=== PATIENT | male | born 1960 | race Hispanic/Latino ===

== ENCOUNTER 2017-01-19 06:35 | Day surgery (SDC) | payer BC ==
[~2017-01-19] VITALS: Ht 180.3 cm; Wt 81.2 kg
[~2017-01-19 06:35] MED LIST: GLUCOPHAGE1000 MG PO; LIPITOR20 MG PO; OMEPRAZOLE20 MG PO; ZESTRIL5 MG PO
[2017-01-19] MEDS ORDERED: DOXYCYCLINE HY100 MG PO (06:51)
--- NOTE | 2017-01-19 09:00 | NUR ---
01/19/17 0900 Prabhakar Roland PATIENT BS 310 ON ARRIVAL TO PACU - DR WEAVER AWARE, PATIENT TO TAKE EXTENDED RELEASE METFORMIN ON DISCHARGE PER DR WEAVER. NO NEW ORDERS
--- NOTE | 2017-01-19 10:10 | NUR ---
BOTH PT AND WINIFRED A LITTLE TENSE. FIRST TIME IN HOSP FOR PT FOR ANY TYPE OF PROCEDURE. DEBRIEFED BOTH, HAD GOOD CONVERSATION. HELPED THEM TO UNDERSTAND WHAT TO EXPECT TODAY. THEY BOTH SEEMED MORE RELIEVED. PT REQUESTED PRAYER. WILL FOLLOW NEEDED
--- NOTE | 2017-01-20 13:21 | OR ---
[facility] [address], [place] [address] Signed DATE OF PROCEDURE: 01/19/17 PREOPERATIVE DIAGNOSES Anemia. Maternal grandmother with colon cancer in her late 70s. Gastroesophageal reflux disease. POSTOPERATIVE DIAGNOSES Mild proximal and distal patchy gastritis. Minimal sigmoid diverticulosis. Jwujqtlh-zr-srmvrzumxoo internal hemorrhoids. A 4-mm polyp at 25 cm. PROCEDURE PERFORMED EGD with CLOtest and biopsies of the bulb and antrum. Colonoscopy with hot biopsy. ESTIMATED BLOOD LOSS: None. INDICATIONS Kenny is a 56-year-old gentleman asked to see me for upper and lower endoscopy. He has been found to be anemic. He told me he has no upper or lower GI complaints. He mentioned that his maternal grandmother had colon cancer in late 70s. He told me he seems to have acid reflux and uses omeprazole . In the office, I gave Benjamín a pamphlet on both upper and lower endoscopy. We reviewed that together along with the risks including, but not limited to gas bloating, crampy abdominal pain, bleeding, perforation requiring surgery, and missed diagnosis. Ramonita mercedes also discussed the need for IV conscious sedation. He had his expressed understanding and wished to proceed. PROCEDURE IN DETAIL Benjamín was taken into our endoscopy suite and placed in the supine semi-recumbent position. He was given a total of 13 mg of Versed and 200 mcg of Fentanyl to cover both procedures. The posterior oropharynx was anesthetized with Hurricaine spray. A bite block was utilized for the case. The adult gastroscope was introduced and advanced under direct visualization of the camera out into the third portion of the duodenum. The duodenum and pyloric channel were unremarkable. He had just a few patchy areas in the antrum and up around the fundus of the stomach. We took a biopsy of the antrum for pathologic review as well as CLOtest. Upon retroflexion of scope, he does not have a true hiatal hernia, but the flap valve mechanism is less than optimal. There is no gastric or esophageal varices. No ulcerations. The scope was withdrawn up to the GE junction, which was compliant without stricture. He has very minimal disruption to his Z-line. There was no Coto's mucosa, no distal esophagitis. The middle and upper Electronically Signed By: DOE WEAVER MD 01/20/17 1321 PATIENT NAME: BENJAMÍN DOTY JR OPERATIVE REPORT DATE OF : 64 PHYSICIAN: DOE WEAVER MD REPORT #: [id number] REPORT IS CONFIDENTIAL AND NOT TO BE RELEASED WITHOUT AUTHORIZATION [facility] [address] [place], [place] [address] Signed esophagus were unremarkable. After this, the gastroscope was removed. Benjamín tolerated the procedure quite well. Benjamín was then rotated into the left lateral decubitus position. He was maintained on IV sedation with Versed and Fentanyl. A digital rectal exam was performed and he is starting to get some induration of his prostate consistent with his age. The adult colonoscope was introduced and advanced under direct visualization of the camera. The scope continued to buckle in his left colon for reasons that were not clear. We rotated him onto his back and back on the left lateral decubitus position. We used the abdominal compression, and eventually, the scope made its way around into the cecum itself. His prep was moderate. After that, the scope was slowly withdrawn. We could easily see the appendiceal orifice, catawba's foot, the ileocecal valve. We found a polyp at about 20-25 cm, which we removed with a hot biopsy forceps, was just above the rectum. We also saw just an occasional diverticula in the sigmoid colon. They were moderate-sized, few in number, and scattered about. The rectum itself was unremarkable. Upon retroflexion of the scope, he has moderate to significant internal hemorrhoids. No obvious bleeding at this time. No irritation that we could see. The gas was then suctioned out. The colonoscope removed. Ed tolerated the procedure quite well. RECOMMENDATIONS I will see him back in my office in 7-14 days to review his results. On his next colonoscopy, he might consider some additional prep to help ensure better clean-out of his colon. MD PHILLIP Vanessa/Adrienne /[id number] cc: Brodie Capone MD Electronically Signed By: DOE WEAVER MD 01/20/17 1321 PATIENT NAME: BENJAMÍN DOTY JR OPERATIVE REPORT DATE OF : 64 PHYSICIAN: DOE WEAVER MD REPORT #: [id number] REPORT IS CONFIDENTIAL AND NOT TO BE RELEASED WITHOUT AUTHORIZATION
[2017-01-26] MEDS ORDERED: INSULIN SYRING1 EA11 SUB-Q (11:16)
[2017-01-26] MEDS ORDERED: NOVOLIN R100 UNIT/1 SUB-Q (11:16)
== END 2017-01-19 09:27 | disposition home or self-care (01) ==
LOC: DS 06:35
PROVIDERS: Colon & Rectal Surgery
PROC: 0DB78ZX Excision of Stomach, Pylorus, Via Natural or Artificial Opening Endoscopic, Diagnostic (ICD-10-PCS; 2017-01-19)
PROC: 0DBE8ZX Excision of Large Intestine, Via Natural or Artificial Opening Endoscopic, Diagnostic (ICD-10-PCS; principal; 2017-01-19 06:45)
PROC: 0DB68ZX Excision of Stomach, Via Natural or Artificial Opening Endoscopic, Diagnostic (ICD-10-PCS; 2017-01-19 06:45)
DX: D12.6 Benign neoplasm of colon, unspecified (principal); K29.50 Unspecified chronic gastritis without bleeding; K57.30 Diverticulosis of large intestine without perforation or abscess without bleeding; K64.8 Other hemorrhoids; K21.9 Gastro-esophageal reflux disease without esophagitis; K44.9 Diaphragmatic hernia without obstruction or gangrene; I10 Essential (primary) hypertension; E11.9 Type 2 diabetes mellitus without complications; D64.9 Anemia, unspecified; Z79.899 Other long term (current) drug therapy; Z80.0 Family history of malignant neoplasm of digestive organs
CPT/HCPCS: 86677; 99152; 99153; J2250; J3010; J7120

== ENCOUNTER 2017-01-22 09:02 | Inpatient (IN) | payer BC ==
[~2017-01-22] VITALS: Ht 180.3 cm; Wt 79.7 kg
--- OUTSIDE RECORDS SUMMARY | ~2017-01-22 | XMS ---
Demographics + + + | Address | [address] | | | [place] [address] | + + + | Preferred Language | Unknown | + + + | Marital Status | Unknown | + + + | Gnosticist Affiliation | Unknown | + + + | Race | Unknown | + + + | Ethnic Group | Unknown | + + + Author + + + | Author | [facility] | + + + | Organization | [facility] | + + + | Address | [address] | | | [place] [address] | + + + | Phone | | + + + Care Team Providers + + + + | Care Junior Systems Administrator Name | Role | Phone | + + + + Unavailable | Unavailable | + + + + PROBLEMS +---------+ + + +--------+ + + | Type | Condition | ICD9-CM | [id number] | Onset | Condition | SNOMED | | | | Code | Code | Dates | Status | Code | +---------+ + + +--------+ + + | Problem | Single | I10 | | | Active | [id number] | | | episode of | | | | | | | | | | | | | | | | hypertensi | | | | | | | | on | | | | | | +---------+ + + +--------+ + + | Problem | Dyslipidem | E78.5 | | | Active | 477098152 | | | ia | | | | | | +---------+ + + +--------+ + + | Problem | Diabetes | | E11.9 | | Active | 664690750 | +---------+ + + +--------+ + + | Problem | Marijuana | F12.10 | | | Active | 58892203 | | | use | | | | | | +---------+ + + +--------+ + + | Problem | Type 2 | | E11.9 | | Active | 652011867 | | | diabetes | | | | | | | | mellitus | | | | | | | | without | | | | | | | | complicati | | | | | | | | ons | | | | | | +---------+ + + +--------+ + + | Problem | HTN | | I10 | | Active | 62283974 | | | (hypertens | | | | | | | | ion) | | | | | | +---------+ + + +--------+ + + | Problem | Type 2 | | E11.621 | | Active | [id number] | | | diabetes | | | | | 100 | | | mellitus | | | | | | | | with foot | | | | | | | | ulcer | | | | | | +---------+ + + +--------+ + + | Problem | Screening | | Z12.11 | | Active | 818064200 | | | for colon | | | | | | | | cancer | | | | | | +---------+ + + +--------+ + + | Problem | Screening | Z12.5 | | | Active | 366760274 | | | for | | | [...] N.K.D.A. | Unknown | Non Drug | Nov, | Unknown | | | | Allergy | | | + + + + +---------+ SOCIAL HISTORY No smoking Hx information available PLAN OF CARE + +---------+ | Activity | Details | + +---------+ +---+ | | +---+ + + + | Follow Up | 4 Weeks Reason:null | + + + | Pending Test | Helicobacter pylori Antigen, Stool | + + + VITAL SIGNS + + + + | Height | 71 in | 2016-11-12 | + + + + | Weight | 181.2 lbs | 2016-11-12 | + + + + | BMI | 25.27 kg/m2 | 2016-11-12 | + + + + | Temperature | 98.0 degrees Fahrenheit | 2016-11-12 | + + + + | Heart Rate | 106 /min | 2016-11-12 | + + + + | Blood pressure systolic | 128 mm Hg | 2016-11-12 | + + + + | Blood pressure diastolic | 83 mm Hg | 2016-11-12 | + + + + MEDICATIONS + [...] + + + + + +--------+ | Bactrim | Orally | 1 tablet | 12h | 25 October, | 4 Nov, | 10 | Active | | DS | bid | | | 2017 | 2017 | day(s) | | | 800-160 | | | | | | | | | MG | | | | | | | | + + + + + + + +--------+ RESULTS + +--------+ + + | Name | Result | Date | Reference Range | + +--------+ + + | PSA Total+ Free | | 2016-11-12 | | + +--------+ + + | Prostate-Specific | | | | | Ag, Serum | | | | + +--------+ + + | % Free PSA | | | | + +--------+ + + | PSA, Free | | | | + +--------+ + + | Iron Deficiency | | 2016-11-12 | | | Panel | | | | + +--------+ + + | IRON | | | | + +--------+ + + | TIBC | | | | + +--------+ + + | % SATURATION | | | | + +--------+ + + | FERRITIN | | | | + +--------+ + + | UIBC | | | | + +--------+ + + | TRANSFERRIN | | | | + +--------+ + + | Vitamin B12 and | | 2016-11-12 | | | Folate | | | | + +--------+ + + | VITAMIN B12 | | | | + +--------+ + + | FOLATE | | | | + +--------+ + + | Reticulocyte Count | | 2016-11-12 | | + +--------+ + + PROCEDURES + + + + + | Procedure | Date Ordered | Related Diagnosis | Body Site | + + + + + | TOBACCO NON-USER | November 12, 2016 | | | + + + + + | TDAP >7, IM | November 12, 2016 | | | + + + + + | IMMUNIZATION ADMIN | November 12, 2016 | | | + + + + + | COLORECTAL CA | November 12, 2016 | | | | SCREEN DOC REV | | | | + + + + + | DSCHRG MED/CURRENT | November 12, 2016 | | | | MED MERGE | | | | + + + + + | PATIENT RECV TRELL | November 12, 2016 | | | | INHIBITOR/ARB TX | | | | + + + + + | INJECTION | November 12, 2016 | | | | INTRAMUSCULAR OR | | | | | SUBCUTANEOUS | | | | + + + + + | PNEUMOCOCCAL VACC, | November 12, 2016 | | | | 13 TATO IM | | | | + + + + + | HEMOGLOBIN A1C | November 12, 2016 | | | | LEVEL > 9.0% | | | | + + + + + | EST Pt. Level V | November 12, 2016 | | | | Comprehensive | | | | + + + + + IMMUNIZATIONS + + + + + | Vaccine | Route | Administration Date | Status | + + + + + | Prevnar 13 | IM Intramuscular | November 12, 2016 | Administered | + + + + + | TDAP >7, IM | IM Intramuscular | November 12, 2016 | Administered | + + + + +"
--- OUTSIDE RECORDS SUMMARY | ~2017-01-22 | XMS ---
Demographics + + + | Address | [address] | | | [place] [address] | + + + | Preferred Language | Unknown | + + + | Marital Status | Unknown | + + + | Protestant Affiliation | Unknown | + + + | Race | Unknown | + + + | Ethnic Group | Unknown | + + + Author + + + | Author | [facility] | + + + | Organization | [facility] | + + + | Address | [address] | | | [place] [address] | + + + | Phone | | + + + Care Team Providers + + + + | Care Yarn Wrapper Name | Role | Phone | + + + + Unavailable | Unavailable | + + + + PROBLEMS +---------+ + + +--------+ + + | Type | Condition | ICD9-CM | [id number] | Onset | Condition | SNOMED | | | | Code | Code | Dates | Status | Code | +---------+ + + +--------+ + + | Problem | Single | I10 | | | Active | [id number] | | | episode of | | | | | | | | | | | | | | | | hypertensi | | | | | | | | on | | | | | | +---------+ + + +--------+ + + | Problem | Dyslipidem | E78.5 | | | Active | 400251455 | | | ia | | | | | | +---------+ + + +--------+ + + | Problem | Diabetes | | E11.9 | | Active | 693988484 | +---------+ + + +--------+ + + | Problem | Marijuana | F12.10 | | | Active | 55021412 | | | use | | | | | | +---------+ + + +--------+ + + | Problem | Type 2 | | E11.9 | | Active | 270742367 | | | diabetes | | | | | | | | mellitus | | | | | | | | without | | | | | | | | complicati | | | | | | | | ons | | | | | | +---------+ + + +--------+ + + | Problem | HTN | | I10 | | Active | 41302503 | | | (hypertens | | | | | | | | ion) | | | | | | +---------+ + + +--------+ + + | Problem | Type 2 | | E11.621 | | Active | 7891160141 | | | diabetes | | | | | 100 | | | mellitus | | | | | | | | with foot | | | | | | | | ulcer | | | | | | +---------+ + + +--------+ + + | Problem | Screening | | Z12.11 | | Active | 108780379 | | | for colon | | | | | | | | cancer | | | | | | +---------+ + + +--------+ + + | Problem | Screening | Z12.5 | | | Active | 682850843 | | | for | | | | | | | | prostate | | | | | | | | cancer | | | | | | +---------+ + + +--------+ + + ALLERGIES Unknown Allergies SOCIAL HISTORY No smoking Hx information available PLAN OF CARE VITAL SIGNS MEDICATIONS + [...] | test | | directed | | 2017 | | | | | strips | | | | | | | | + + + + + + + +--------+ RESULTS No Results PROCEDURES No Known procedures IMMUNIZATIONS No Known Immunizations"
--- OUTSIDE RECORDS SUMMARY | ~2017-01-22 | XMS ---
Demographics + + + | Address | [address] | | | [place] [address] | + + + | Preferred Language | Unknown | + + + | Marital Status | Unknown | + + + | Confucianism Affiliation | Unknown | + + + | Race | Unknown | + + + | Ethnic Group | Unknown | + + + Author + + + | Author | [facility] | + + + | Organization | [facility] | + + + | Address | [address] | | | [place] [address] | + + + | Phone | | + + + Care Team Providers + + + + | Care Technical Developer Name | Role | Phone | + + + + Unavailable | Unavailable | + + + + PROBLEMS +---------+ + + +--------+ + + | Type | Condition | ICD9-CM | [id number] | Onset | Condition | SNOMED | | | | Code | Code | Dates | Status | Code | +---------+ + + +--------+ + + | Problem | Single | I10 | | | Active | 69562535 | | | episode of | | | | | | | | | | | | | | | | hypertensi | | | | | | | | on | | | | | | +---------+ + + +--------+ + + | Problem | Dyslipidem | E78.5 | | | Active | 614511161 | | | ia | | | | | | +---------+ + + +--------+ + + | Problem | Diabetes | | E11.9 | | Active | 226971839 | +---------+ + + +--------+ + + | Problem | Marijuana | F12.10 | | | Active | 78973302 | | | use | | | | | | +---------+ + + +--------+ + + | Problem | Type 2 | | E11.9 | | Active | 423393527 | | | diabetes | | | | | | | | mellitus | | | | | | | | without | | | | | | | | complicati | | | | | | | | ons | | | | | | +---------+ + + +--------+ + + | Problem | HTN | | I10 | | Active | 54033134 | | | (hypertens | | | | | | | | ion) | | | | | | +---------+ + + +--------+ + + | Problem | Type 2 | | E11.621 | | Active | 3252312528 | | | diabetes | | | | | 100 | | | mellitus | | | | | | | | with foot | | | | | | | | ulcer | | | | | | +---------+ + + +--------+ + + | Problem | Screening | | Z12.11 | | Active | 851184708 | | | for colon | | | | | | | | cancer | | | | | | +---------+ + + +--------+ + + | Problem | Screening | Z12.5 | | | Active | 642837927 | | | for | | | [...] | | as | 24h | 06 Nov, | | | Active [...]
--- OUTSIDE RECORDS SUMMARY | ~2017-01-22 | XMS ---
Demographics + + + | Address | [address] | | | [place] [address] | + + + | Preferred Language | Unknown | + + + | Marital Status | Unknown | + + + | Yazidi Affiliation | Unknown | + + + | Race | Unknown | + + + | Ethnic Group | Unknown | + + + Author + + + | Author | [facility] | + + + | Organization | [facility] | + + + | Address | [address] | | | [place] [address] | + + + | Phone | | + + + Care Team Providers + + + + | Care Platform Operations Director Name | Role | Phone | + + + + Unavailable | Unavailable | + + + + PROBLEMS +---------+ + + +--------+ + + | Type | Condition | ICD9-CM | [id number] | Onset | Condition | SNOMED | | | | Code | Code | Dates | Status | Code | +---------+ + + +--------+ + + | Problem | Single | I10 | | | Active | [id number] | | | episode of | | | | | | | | | | | | | | | | hypertensi | | | | | | | | on | | | | | | +---------+ + + +--------+ + + | Problem | Dyslipidem | E78.5 | | | Active | 005498742 | | | ia | | | | | | +---------+ + + +--------+ + + | Problem | Diabetes | | E11.9 | | Active | 577851307 | +---------+ + + +--------+ + + | Problem | Marijuana | F12.10 | | | Active | 81762991 | | | use | | | | | | +---------+ + + +--------+ + + | Problem | Type 2 | | E11.9 | | Active | 715473215 | | | diabetes | | | | | | | | mellitus | | | | | | | | without | | | | | | | | complicati | | | | | | | | ons | | | | | | +---------+ + + +--------+ + + | Problem | HTN | | I10 | | Active | 31341923 | | | (hypertens | | | | | | | | ion) | | | | | | +---------+ + + +--------+ + + | Problem | Type 2 | | E11.621 | | Active | 3242391240 | | | diabetes | | | | | 100 | | | mellitus | | | | | | | | with foot | | | | | | | | ulcer | | | | | | +---------+ + + +--------+ + + | Problem | Screening | | Z12.11 | | Active | 707270995 | | | for colon | | | | | | | | cancer | | | | | | +---------+ + + +--------+ + + | Problem | Screening | Z12.5 | | | Active | 693774155 | | | for | | | [...]
[~2017-01-22 09:02] MED LIST changes: +DOXYCYCLINE HY100 MG PO
--- NOTE | 2017-01-22 10:33 | NUR ---
PT ARRIVED AND WAS SETTLED IN HIS ROOM. WEIGHT WAS TAKEN BY BED. PT IS PLEASANT AND COOPERATIVE, PROVIDED APPROPRIATE HISTORY. PT REPORTS NO PAIN, EXCEPT IN RIGHT FOOT WHEN WEIGHT BEARING. PT REPORTS LITTLE APPITITE SINCE BEFORE COLONOSCOPY EARLIER THIS WEEK. NO BM IN 3 DAYS. RIGHT FOOT ULCER WAS DRESSED AND PACKED BY DR VARMA THIS MORNING. SKIN IS OTHERWISE INTACT.
--- NOTE | 2017-01-22 13:03 | NUR ---
PT WENT DOWN TO MRI SCAN.
[2017-01-22] MEDS ORDERED: IBUPROFEN800 MG PO (14:16)
--- NOTE | 2017-01-22 14:19 | NUR ---
MED REC COMPLETE WITH [facility] MED LIST AND [facility] MED LIST.
--- NOTE | 2017-01-22 15:25 | NUR ---
PT IS RESTING IN BED, BREATHING IS EVEN AND UNLABORED. PT STATES NO PAIN.
--- NOTE | 2017-01-22 17:19 | NUR ---
PT IS A & O X4. PLEASANT AND COOPERATIVE, SPOUSE AT BEDSIDE. PT DENIES PAIN, EXCEPT WITH WEIGHTBEARING. PT TOLERATING ADA DIET WELL, NO C/O NAUSEA. INDEPENDENT IN ROOM. R FOOT IS ELEVATED ON PILLOW. FOOT WAS DRESSED AND PACK IN OFFICE BY DR VARMA. SMALL AMOUNT DRAINAGE ON DRESSING.
--- NOTE | 2017-01-22 18:17 | NUR ---
PT IS SITTING UP IN BED EATING HIS DINNER. BP WAS HIGH, NURSE NOTIFIED. PT DID NOT NEED ANYTHING ELSE
--- NOTE | 2017-01-22 19:00 | NUR ---
BEDSIDE SHIFT REPORT RECEIVED FROM ANNE GOMEZ. PT IS SITTING UP IN BED, AT BEDSIDE. DENIES PAIN AT THIS TIME. DRESSING TO RIGHT FOOT INTACT. DENIES NEEDS, CALL LIGHT IS WITHIN REACH.
--- NOTE | 2017-01-22 20:20 | NUR ---
CEFEPIME INFUSION STARTED AT THIS TIME. PT CONTINUES TO DENY PAIN. WILL CONTINUE TO MONITOR.
--- NOTE | 2017-01-22 21:10 | NUR ---
DR. SCHAFER NOTIFIED OF PT'S ELEVATED BP: 188/82. DR. SCHAFER STATES THAT SHE WILL ADD NEW ORDERS.
--- NOTE | 2017-01-22 21:30 | NUR ---
ASSESSMENT COMPLETED. ALERT/ORIENTED. DENIES PAIN. LUNGS CLEAR, RA. HR REGULAR. BOWEL TONES HYPOACTIVE, DENIES NAUSEA. CB, 5 UNITS SLIDING SCALE GIVEN. PRN APRESOLINE GIVEN FOR ELEVATED BP. IV PATENT, INFUSING WNL. DRESSING TO RIGHT FOOT INTACT, DRAINAGE NOTED ON THE HEEL. PT DENIES FURTHER NEEDS AT THIS TIME, WILL CONTINUE TO MONITOR.
--- NOTE | 2017-01-23 00:30 | NUR ---
IN TO START VANCO INFUSION. PT SLEEPING, WOKE WHEN I ENTERED ROOM. DENIES PAIN. WILL CONTINUE TO MONITOR.
--- NOTE | 2017-01-23 02:43 | NUR ---
PT SLEEPING, NO APPARENT DISTRESS. RESPIRATIONS EVEN AND UNLABORED. WILL CONTINUE TO MONITOR.
--- NOTE | 2017-01-23 05:50 | NUR ---
PT VS TAKEN. PT GIVEN CLORAHEXIDINE WIPES AND EXPLAINED PROCEDURE.
--- NOTE | 2017-01-23 06:30 | NUR ---
ASSESSMENT COMPLETED. NO CHANGES FROM PREVIOUS ASSESSMENT. PT READY FOR SURGERY, DENIES NEEDS AT THIS TIME.
--- NOTE | 2017-01-23 06:40 | NUR ---
PT HAD UNEVENTFUL SHIFT, SLEPT MAJORITY OF NIGHT. NO PAIN, NO NAUSEA. BECAME NPO AT MIDNIGHT. SBA, STEADY ON FEET. IV PATENT, NS @75, IV ABX: CEFEPIME AND VANCO. ACCUCHECKS, SLIDING SCALE, AND LEVEMIR. PRN APRESOLINE GIVEN ONCE FOR ELEVATED BP. DRESSING TO RIGHT FOOT INTACT, SMALL AMOUNT OF DRAINAGE PRESENT ON HEEL. PT ALL READY TO GO TO SURGERY THIS MORNING.
--- NOTE | 2017-01-23 07:15 | NUR ---
NURSE FROM [facility] HERE TO TAKE PT TO PROCEDURE. PT OFF THE FLOOR AT THIS TIME.
--- NOTE | 2017-01-23 07:21 | NUR ---
PT OFF THE FLOOR AT REPORT. RECIEVED REPORT FROM ANNE MULTANI. PT IN SURGERY AT THIS TIME.
--- NOTE | 2017-01-23 08:49 | NUR ---
01/23/17 0849 Talisha Gill 0839 - PT ARRIVED TO PACU, MAINTAINING OWN AIRWAY. BLOOD SURGAR = 236. RURAL ROUTE CARRIER AT BEDSIDE AND WOULD LIKE AM DOSE OF INSULIN TO BE GIVEN.
--- NOTE | 2017-01-23 09:40 | NUR ---
RECIEVED BEDSIDE REPORT FROM PACU NURSE ANNE CARMEN. PT RETURNED FROM PACU ON ROOM AIR, DROWSY. PT ALERT AND ORIENTENTED. RIGHT FOOT DRESSED WITH COBAN AND ELEVATED ON A PILLOW. PT DENIES PAIN. TOLERATING CLEAR LIQUIDS WELL.
--- NOTE | 2017-01-23 10:01 | NUR ---
Tobramycin 1.2g powder sent to PACU for incorporation into Stimulan Rapid Cure beads and placed into wound. The jar of additional beads were placed into the patient's cubby in med room. Dr Degroot will be in today for dressing change and assess the wound
--- NOTE | 2017-01-23 10:20 | NUR ---
MEDS GIVEN WHEN PT RETURNED TO UNIT AND WAS AWAKE.
--- NOTE | 2017-01-23 11:32 | NUR ---
AWARE THAT RIDERS WILL BE RUN AFTER ANTIBIOTICS ARE FINISHED.
--- NOTE | 2017-01-23 13:36 | NUR ---
STARTED MAG RIDER. AWARE THAT IT WAS LATE DUE TO ABX RUNNING LATE AND PROBLEMS WITH IV.
--- NOTE | 2017-01-23 14:17 | NUR ---
PT IS LYING IN BED RESTING. PT AGREED TO SHOWER BUT HAS TO WAIT TIL IV ANTIBIOTICS IS DONE
--- NOTE | 2017-01-23 17:08 | NUR ---
PT HAS SHOWERED AND IS NOW RESTING SAFELY BACK IN BED.
--- NOTE | 2017-01-23 18:23 | NUR ---
DR VARMA ROUNDED ON PT. CHANGED DRESSING AND ASSESSED WOUND. WOUND IS APROX 4CM X 2CM, WITH A PERIWOUND AREA OF APROX 10CM THAT IS RED. DR VARMA IS PLEASED WITH PROCESS.
--- NOTE | 2017-01-23 18:29 | NUR ---
PT HAS EATEN DINNER AND IS NOW SITTING UP IN BED RESTING WITH CALL LIGHT IN REACH. PT ASKED THAT CURTAIN AND DOOR BE CLOSED
--- NOTE | 2017-01-23 19:00 | NUR ---
SHIFT REPORT RECEIVED FROM ANNE GOMEZ. PT IS CURRENTLY SLEEPING, NO APPARENT DISTRESS. RESPIRATIONS EVEN AND UNLABORED. WILL CONTINUE TO MONITOR.
--- NOTE | 2017-01-23 21:08 | NUR ---
ASSESSMENT COMPLETED. ALERT/ORIENTED, DENIES PAIN. LUNGS CLEAR, RA. HR REGULAR. BOWEL TONES ACTIVE. DRESSING TO RIGHT FOOT C/D/I. CB, 9 UNITS SLIDING SCALE AND 3 UNITS LEVEMIR ADMINISTERED. PT UP TO BATHROOM WITH SBA AND CANE, VOIDED AND THEN RETURNED TO BED, TOLERATED WELL. IV INFUSING WNL. PT SALVADOR FURTHER REQUESTS AT THIS TIME, WILL CONTINUE TO MONITOR. CALL LIGHT IS WITHIN REACH.
--- NOTE | 2017-01-23 23:40 | NUR ---
CHECKED IN ON PT WHO IS WATCHING TV, AT BEDSIDE. DENIES NEEDS AT THIS TIME. WILL CONTINUE TO MONITOR.
--- NOTE | 2017-01-24 02:43 | NUR ---
PT SLEEPING, NO APPARENT DISTRESS. RESPIRATIONS EVEN AND UNLABORED. WILL CONTINUE TO MONITOR.
--- NOTE | 2017-01-24 05:28 | NUR ---
UNEVENTFUL SHIFT. SLEPT MAJORITY OF NIGHT. NO PAIN. NO NAUSEA. DRESSING TO RIGHT FOOT C/D/I. SBA WITH CANE, STEADY ON FEET. 2 IV SITES, PATENT, NS @75, IV ABX: CEFEPIME AND VANCO, HAS PICC CONSULT ORDERED. ACCUCHECKS, SLIDING SCALE, AND LEVEMIR. ADA DIET, APPETITE IMPROVING. VANCO TROUGH TODAY AT 1130.
--- NOTE | 2017-01-24 08:28 | NUR ---
Dr Irizarry here, changed dressing, n.o received. pt denies c/o pain, eating
--- NOTE | 2017-01-24 13:16 | NUR ---
vancomycin 1.75G IV, adjusted by pharmacy per vanco through of 11.1. Pt watching tv, r leg elevated, dressing cdi. no c/o pain, no requests, no c/o adverse reaction to abx or to high blood sugars earlier of 231.
--- NOTE | 2017-01-24 13:35 | NUR ---
Vancomycin trough level = 11.1 just prior to 5th dose. Increase dose from 1500mg IV q 12 hrs to 1750mg IV q 12 hrs. Wound culture after 2 days grew moderate growth Gm(+) cocci. Patient has history of MSSA (November 2016)
--- NOTE | 2017-01-24 16:43 | NUR ---
PT HAS BEEN UP AND DOWN TO USE THE BRP/URINAL, USES CANE AND ONE ASSIST. NO C/O LAZARO. HAS 2 IV SITES, LFA CHANGED TO SL PT C/O LIGHT TENDERNESS WHEN VANCOMYCIN WAS INFUSING. NO FURTHER PROBLEMS SINCE THEN, GOOD FLOW RETURN, NO REDNESS, NO EDEMA. IVF INFUSING RFA, PATENT. PT RECEIVING FLAGYL, MAXIPINE, VANCOMYCIN, NO C.O ADVERSE REACTION TO ABX. BS HAVE BEEN 168-RECEIVED 3 UNITS NOVOLOG, THEN 231 AT NOON-RECEIVED 5 UNITS S/S INSULIN, AND 258 WILL RECEIVE 5 UNITS OF S/S NOVOLOG. DR VARMA CHANGED DRESSING RIGHT FOOT, FOOT EDEMATOUS, ELEVATED , DRESSING CDI. PT WALKED [facility], DID STAIRS AND WALKED W/O PROBLEMS. PT CURRENTLY WATCHING TV, NO C/O PAIN OR C/O HIGH BLOOD SUGARS S/SX.
--- NOTE | 2017-01-24 19:10 | NUR ---
BEDSIDE SHIFT REPORT RECEIVED FROM RA PRATIK. PT SITTING UP IN BED, AT BEDSIDE. PT DENIES PAIN. IV INFUSING WNL. DENIES NEEDS AT THIS TIME.
--- NOTE | 2017-01-24 21:30 | NUR ---
ASSESSMENT COMPLETED. ALERT/ORIENTED. DENIES PAIN AND NAUSEA. LUNGS CLEAR, RA. HR REGULAR. BOWEL TONES ACTIVE, SENNA GIVEN. CB, 7 UNITS NOVOLOG AND 10 UNITS LEVEMIR ADMINISTERED. DRESSING TO RIGHT FOOT CHANGED. CLEANSED WITH HIBICLENS AND COVERED WITH ADAPTIC, 4X4 GAUZE, ABD PAD, KERLIX, AND COBAN. PT DENIES FURTHER REQUESTS AT THIS TIME, WILL CONTINUE TO MONITOR.
--- NOTE | 2017-01-25 01:18 | NUR ---
CHECKED IN ON PT WHO HAD JUST RETURNED FROM THE BATHROOM. DENIES NEEDS, WILL CONTINUE TO MONITOR.
--- NOTE | 2017-01-25 02:16 | NUR ---
ASSESSMENT COMPLETED. NO CHANGES FROM PREVIOUS ASSESSMENT. DRESSING TO RIGHT FOOT REMAINS C/D/I. CEFEPIME INFUSING THROUGH LEFT FOREARM IV SITE, PT DENIES DISCOMFORT. VANCO INFUSING THROUGH RIGHT FOREARM IV SITE. PT COMFORTABLE, DENIES FURTHER REQUESTS.
--- NOTE | 2017-01-25 05:09 | NUR ---
PT HAD GOOD NIGHT, SLEPT MAJORITY OF SHIFT. NO PAIN. NO NAUSEA. LUNGS CLEAR, RA. HR REGULAR. BOWEL TONES ACTIVE, SENNA GIVEN, NO BM. VOIDING QS. DRESSING TO R FOOT CHANGED AT 2130, CDI. SBA WITH CANE. ACCUCHECKS, SS, AND BID LEVEMIR X2 IV SITES, PATENT, NS @ 75ML/HR, IV ABX: CEFEPIME AND VANCO. PICC CONSULT ORDERED.
--- NOTE | 2017-01-25 06:47 | NUR ---
DR. VARMA IN AT THIS TIME TO DO DRESSING CHANGE TO RIGHT FOOT.
--- NOTE | 2017-01-25 07:15 | NUR ---
REPORT RECEIVED FROM ELECTRON BEAM WELDING MACHINE OPERATOR RN USING 5 P'S. PT AWAKE AND ALERT. DENIES PAIN. DRESSING TO R FOOT CDI. RECENTLY CHANGED THIS AM BY DR. VARMA. IV FLUIDS INFUSING WITHOUT DIFFICULTY. PT DENIES NEEDS. CALL LIGHT IN REACH.
--- NOTE | 2017-01-25 09:00 | NUR ---
PATIENT RESTING IN BED WATCHING TV. WASHED FACE AND HANDS. REFUSED ORAL CARE. WILL TRY AGAIN LATER TO OFFER BATH. CALL BUTTON IN REACH FRESH ICE WATER GIVEN.
--- NOTE | 2017-01-25 09:30 | NUR ---
PT RESTING IN BED. DENIES PAIN. AM MEDS AND ASSESSMENT DONE. IV FLUIDS INFUSING WITHOUT DIFFICULTY. CALL LIGHT IN REACH.
--- NOTE | 2017-01-25 09:33 | NUR ---
Vancomycin trough level ordered for 01/26/17 @ 1330. Pharmacy will assess results and make any necessary changes
--- NOTE | 2017-01-25 09:58 | NUR ---
LEFT ARM IV FLUSHED. MAG RIDER INFUSING FOR 1 HOUR.
--- NOTE | 2017-01-25 10:07 | NUR ---
PATIENT RESTING IN BED. STATES HE'S TRYING TO GET SOME REST. GAVE PATIENT I.S. TO USE DUE TO 99.1 TEMP. CALL BUTTON IN REACH. FRESH ICE WATER GIVEN NO OTHER NEEDS AT THIS TIME.
--- NOTE | 2017-01-25 12:48 | NUR ---
PT RESTING IN BED, ALERT AND ORIENTED. HE FEELS INFORMED AND EXPRESSED GRATITUDE FOR THE CARE HE HAS RECEIVED. HE PUT IT "LOTS OF ANTIBIOTICS" ARE WORKING TO ATTACK INFECTION. HAD PRAYER, WILL CONTINUE TO FOLLOW NEEDED
--- NOTE | 2017-01-25 14:39 | NUR ---
PT SL'D FOR SHOWER. DR ALVARADO IN TO SEE PT. PT TO DC HOME. IV TO REMAIN IN PLACE FOR OUTPT ABX UNTIL PICC PLACED PER DR ALVARADO.
[2017-01-25] MEDS ORDERED: GLUCOPHAGE1000 MG PO (14:44)
[2017-01-25] MEDS ORDERED: HUMULIN R100 UNIT/1 SUB-Q (14:47)
[2017-01-25] MEDS ORDERED: ONE TOUCH ULTR1 EACH MISC (14:49)
[2017-01-25] MEDS ORDERED: CEFTRIAXONE2 G2 IV (14:51)
--- NOTE | 2017-01-25 15:00 | NUR ---
PATIENT UP TO SHOWER. LEFT FOOT WRAPPED. PATIENT KNOWS TO PULL CORD TO CALL WHEN DONE. ORAL CARE DONE.
[2017-01-26] MEDS ORDERED: INSULIN SYRING1 EA11 SUB-Q (11:16)
[2017-01-26] MEDS ORDERED: NOVOLIN R100 UNIT/1 SUB-Q (11:16)
== END 2017-01-25 15:52 | disposition home or self-care (01) | DRG 623 ==
LOC: MS 09:02
PROVIDERS: Podiatrist Foot Surgery; ADMIT Internal Medicine
PROC: 0JBQ0ZZ Excision of Right Foot Subcutaneous Tissue and Fascia, Open Approach (ICD-10-PCS; principal; 2017-01-23 07:30)
DX: E11.621 Type 2 diabetes mellitus with foot ulcer (principal); L03.115 Cellulitis of right lower limb; L97.312 Non-pressure chronic ulcer of right ankle with fat layer exposed; M86.171 Other acute osteomyelitis, right ankle and foot; E11.65 Type 2 diabetes mellitus with hyperglycemia; E86.0 Dehydration; B95.62 Methicillin resistant Staphylococcus aureus infection as the cause of diseases classified elsewhere; I10 Essential (primary) hypertension; E78.5 Hyperlipidemia, unspecified; K21.9 Gastro-esophageal reflux disease without esophagitis; Z79.4 Long term (current) use of insulin; Z79.84 Long term (current) use of oral hypoglycemic drugs
CPT/HCPCS: 01482; 36415; 73723; 80048; 80069; 80202; 83036; 83735; 85025; 86140; 97116; 97161; 97530; A9579; C1713; J0692; J2405; J2704; J2795; J3370; J3475; J3480; J7030; J7060

== ENCOUNTER 2017-06-23 17:14 | Emergency (ER) | payer BC ==
[~2017-06-23] VITALS: Ht 180.3 cm; Wt 79.8 kg
[~2017-06-23 17:14] MED LIST changes: +CEFTRIAXONE2 G2 IV; +HUMULIN R100 UNIT/1 SUB-Q; +IBUPROFEN800 MG PO; +INSULIN SYRING1 EA11 SUB-Q; +NOVOLIN R100 UNIT/1 SUB-Q; +ONE TOUCH ULTR1 EACH MISC
--- OUTSIDE RECORDS SUMMARY | 2017-06-23 17:21 | XMS ---
Demographics + + + | Address | [address] | | | [place] [address] | + + + | Preferred Language | Unknown | + + + | Marital Status | Unknown | + + + | Druze Affiliation | Unknown | + + + | Race | Unknown | + + + | Ethnic Group | Unknown | + + + Author + + + | Author | [facility] | + + + | Organization | [facility] | + + + | Address | [address] | | | [place] [address] | + + + | Phone | | + + + Care Team Providers + + + + | Care Shade Cloth Finisher Name | Role | Phone | + + + + Unavailable | Unavailable | + + + + PROBLEMS +---------+ + + +--------+ + + | Type | Condition | ICD9-CM | [id number] | Onset | Condition | SNOMED | | | | Code | Code | Dates | Status | Code | +---------+ + + +--------+ + + | Problem | Diabetes | | E11.9 | | Active | [id number] | +---------+ + + +--------+ + + | Problem | Type 2 | | E11.621 | | Active | 1981080684 | | | diabetes | | | | | 100 | | | mellitus | | | | | | | | with foot | | | | | | | | ulcer | | | | | | +---------+ + + +--------+ + + | Problem | Dyslipidem | E78.5 | | | Active | 241450976 | | | ia | | | | | | +---------+ + + +--------+ + + | Problem | Mixed | E78.2 | | | Active | 589947129 | | | dyslipidem | | | | | | | | ia | | | | | | +---------+ + + +--------+ + + | Problem | Marijuana | F12.10 | | | Active | 18079563 | | | use | | | | | | +---------+ + + +--------+ + + | Problem | Screening | Z12.5 | | | Active | 044240308 | | | for | | | | | | | | prostate | | | | | | | | cancer | | | | | | +---------+ + + +--------+ + + | Problem | HTN | | I10 | | Active | 83067880 | | | (hypertens | | | | | | | | ion) | | | | | | +---------+ + + +--------+ + + | Problem | Type 2 | | E11.9 | | Active | 744481313 | | | diabetes | | | | | | | | mellitus | | | | | | | | without | | | | | | | | complicati | | | | | | | | ons | | | | | | +---------+ + + +--------+ + + | Problem | Screening | | Z12.11 | | Active | 362619864 | | | for colon | | | | | | | | cancer | | | | | | +---------+ + + +--------+ + + | Problem | Thrombocyt | D47.3 | | | Active | 6116419 | | | osis | | | | | | +---------+ + + +--------+ + + | Problem | Hypomagnes | | E83.42 | | Active | 679794915 | | | emia | | | | | | +---------+ + + +--------+ + + | Problem | Normocytic | D64.9 | | | Active | 866814031 | | | anemia | | | | | | +---------+ + + +--------+ + + | Problem | 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 | | | Active | 667349437 | | | ed type 2 | | | | | | | | diabetes | | | | | | | | mellitus | | | | | | +---------+ + + +--------+ + + | Problem | Hypokalemi | | E87.6 | | Active | 02566867 | | | a | | | | | | +---------+ + + +--------+ + + | Problem | Single | I10 | | | Active | 76334795 | | | episode of | | | | | | | | | | | | | | | | hypertensi | | | | | | | | on | | | | | | +---------+ + + +--------+ + + ALLERGIES No Information SOCIAL HISTORY Never Assessed PLAN OF CARE VITAL SIGNS MEDICATIONS + + + + + + + +--------+ | Medicati | Instruct | Dosage | Frequenc | Start | End Date | Duration | Status | | on | ions | | y | Date | | | | + + + + + + + +--------+ | One | | as | 24h | 06 Tej, | | | Active | | Touch | | directed | | 2017 | | | | | Test | | | | | | | | | Strips | | | | | | | | | ... | | | | | | | | + + + + + + + +--------+ | Novolin | | | | | | | Active | | R 100 | | | | | | | | | UNIT/ML | | | | | | | | + + + + + + + +--------+ | One | | as | | 06 Tej, | | | Active | | Touch | | directed | | 2017 | | | | | Lancets | | | | | | | | + + + + + + + +--------+ | Lisinopr | Orally | 1 tablet | 24h | Nov, | | 30 days | Active | | il 10 MG | Once a | | | 2016 | | | | | | day | | | | | | | + + + + + + + +--------+ | MetFORMI | Orally | 1 tablet | | Nov, | | 30 | Active | | N HCl ER | daily | with | | 2016 | | day(s) | | | 1000 mg | with | meals | | | | | | | | dinner | | | | | | | + + + + + + + +--------+ | One | | as | | Nov, | | | Active | | Touch | | directed | | 2016 | | | | | Glucomet | | | | | | | | | er - | | | | | | | | + + + + + + + +--------+ | Cephalex | Orally 4 | 1 | 6h | | | | Active | | in 500 | times a | capsule | | | | | | | MG | day | | | | | | | + + + + + + + +--------+ | Lantus | 10 units | as | 24h | Jan, | | 30 | Active | | 100 | | directed | | 2016 | | day(s) | | | UNIT/ML | Subcutan | | | | | | | | | eous qd | | | | | | | + + + + + + + +--------+ | Breeze 2 | | as | | Nov, | | | Active | | test | | directed | | 2016 | | | | | strips | | | | | | | | + + + + + + + +--------+ | Prilosec | Orally | 1 | 24h | Nov, | | 30 | Active | | 20 mg | Once a | capsule | | 2016 | | day(s) | | | | day | | | | | | | + + + + + + + +--------+ | Atorvast | Orally | 1 tablet | 24h | Sep, | | 30 | Active | | atin | Once a | | | 2016 | | day(s) | | | Calcium | day | | | | | | | | 20 mg | | | | | | | | + + + + + + + +--------+ RESULTS No Results PROCEDURES No Known procedures IMMUNIZATIONS No Known Immunizations MEDICAL (GENERAL) HISTORY + + +---------+ | Type | Description | Date | + + +---------+ | Medical History | diabetes | | + + +---------+ | Medical History | 01/19/17 Dr. Austin MARSHALL [facility] | | + + +---------+ | Medical History | 01/19/17 Dr. susi | | | | CARROL Myers gastritis | | + + +---------+ | Medical History | 02/24/17: Osteomyelitis | | | | right foot, Dr. Koko Gregory, | | | | intravenous antibiotics 6 | | | | weeks, should complete | | | | March 05, then | | | | transition to oral | | | | cephalexin, PICC line | | + + +---------+ | Hospitalization History | Hospital visit | 01/2017 | + + +---------+"
--- OUTSIDE RECORDS SUMMARY | 2017-06-23 17:21 | XMS ---
Demographics + + + | Address | [address] | | | [place] [address] | + + + | Preferred Language | Unknown | + + + | Marital Status | Unknown | + + + | Samaritan Affiliation | Unknown | + + + | Race | Unknown | + + + | Ethnic Group | Unknown | + + + Author + + + | Author | [facility] | + + + | Organization | [facility] | + + + | Address | [address] | | | [place] [address] | + + + | Phone | | + + + Care Team Providers + + + + | Care Senior Sql Developer Name | Role | Phone | + + + + Unavailable | Unavailable | + + + + PROBLEMS +---------+ + + +--------+ + + | Type | Condition | ICD9-CM | [id number] | Onset | Condition | SNOMED | | | | Code | Code | Dates | Status | Code | +---------+ + + +--------+ + + | Problem | Single | I10 | | | Active | [id number] | | | episode of | | | | | | | | | | | | | | | | hypertensi | | | | | | | | on | | | | | | +---------+ + + +--------+ + + | Problem | Dyslipidem | E78.5 | | | Active | 781897141 | | | ia | | | | | | +---------+ + + +--------+ + + | Problem | Diabetes | | E11.9 | | Active | 209871450 | +---------+ + + +--------+ + + | Problem | Marijuana | F12.10 | | | Active | 98441184 | | | use | | | | | | +---------+ + + +--------+ + + | Problem | Type 2 | | E11.9 | | Active | 427054681 | | | diabetes | | | | | | | | mellitus | | | | | | | | without | | | | | | | | complicati | | | | | | | | ons | | | | | | +---------+ + + +--------+ + + | Problem | HTN | | I10 | | Active | 11600955 | | | (hypertens | | | | | | | | ion) | | | | | | +---------+ + + +--------+ + + | Problem | Type 2 | | E11.621 | | Active | [id number] | | | diabetes | | | | | 100 | | | mellitus | | | | | | | | with foot | | | | | | | | ulcer | | | | | | +---------+ + + +--------+ + + | Problem | Screening | | Z12.11 | | Active | 374899169 | | | for colon | | | | | | | | cancer | | | | | | +---------+ + + +--------+ + + | Problem | Screening | Z12.5 | | | Active | 325464647 | | | for | | | | | | | | prostate | | | | | | | | cancer | | | | | | +---------+ + + +--------+ + + | Problem | Hypokalemi | | E87.6 | | Active | 08091237 | | | a | | | | | | +---------+ + + +--------+ + + | Problem | Thrombocyt | D47.3 | | | Active | 3596788 | | | osis | | | | | | +---------+ + + +--------+ + + | Problem | Hypomagnes | | E83.42 | | Active | 938263374 | | | emia | | | | | | +---------+ + + +--------+ + + | Problem | Normocytic | D64.9 | | | Active | 438688604 | | | anemia | | | | | | +---------+ + + +--------+ + + | Problem | 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 | | | Active | 592124875 | | | ed type 2 | | | | | | | | diabetes | | | | | | | | mellitus | | | | | | +---------+ + + +--------+ + + ALLERGIES Unknown Allergies SOCIAL HISTORY No smoking Hx information available PLAN OF CARE VITAL SIGNS MEDICATIONS Unknown Medications RESULTS No Results PROCEDURES No Known procedures IMMUNIZATIONS No Known Immunizations"
--- OUTSIDE RECORDS SUMMARY | 2017-06-23 17:21 | XMS ---
Demographics + + + | Address | [address] | | | [place] [address] | + + + | Preferred Language | Unknown | + + + | Marital Status | Unknown | + + + | Mandaen Affiliation | Unknown | + + + | Race | Unknown | + + + | Ethnic Group | Unknown | + + + Author + + + | Author | [facility] | + + + | Organization | [facility] | + + + | Address | [address] | | | [place] [address] | + + + | Phone | | + + + Care Team Providers + + + + | Care Milieu Coordinator Name | Role | Phone | + + + + Unavailable | Unavailable | + + + + PROBLEMS +---------+ + + +--------+ + + | Type | Condition | ICD9-CM | [id number] | Onset | Condition | SNOMED | | | | Code | Code | Dates | Status | Code | +---------+ + + +--------+ + + | Problem | Single | I10 | | | Active | [id number] | | | episode of | | | | | | | | | | | | | | | | hypertensi | | | | | | | | on | | | | | | +---------+ + + +--------+ + + | Problem | Dyslipidem | E78.5 | | | Active | 832528210 | | | ia | | | | | | +---------+ + + +--------+ + + | Problem | Diabetes | | E11.9 | | Active | 836928376 | +---------+ + + +--------+ + + | Problem | Marijuana | F12.10 | | | Active | 84890495 | | | use | | | | | | +---------+ + + +--------+ + + | Problem | Type 2 | | E11.9 | | Active | 496319992 | | | diabetes | | | | | | | | mellitus | | | | | | | | without | | | | | | | | complicati | | | | | | | | ons | | | | | | +---------+ + + +--------+ + + | Problem | HTN | | I10 | | Active | 55339716 | | | (hypertens | | | | | | | | ion) | | | | | | +---------+ + + +--------+ + + | Problem | Type 2 | | E11.621 | | Active | 3531248775 | | | diabetes | | | | | 100 | | | mellitus | | | | | | | | with foot | | | | | | | | ulcer | | | | | | +---------+ + + +--------+ + + | Problem | Screening | | Z12.11 | | Active | 099403767 | | | for colon | | | | | | | | cancer | | | | | | +---------+ + + +--------+ + + | Problem | Screening | Z12.5 | | | Active | 846067028 | | | for | | | | | | | | prostate | | | | | | | | cancer | | | | | | +---------+ + + +--------+ + + | Problem | Hypokalemi | | E87.6 | | Active | 79508601 | | | a | | | | | | +---------+ + + +--------+ + + | Problem | Thrombocyt | D47.3 | | | Active | 1939292 | | | osis | | | | | | +---------+ + + +--------+ + + | Problem | Hypomagnes | | E83.42 | | Active | 789395365 | | | emia | | | | | | +---------+ + + +--------+ + + | Problem | Normocytic | D64.9 | | | Active | 092555909 | | | anemia | | | | | | +---------+ + + +--------+ + + | Problem | 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 | | | Active | 756070104 | | | ed type 2 | | | | | | | | diabetes | | | | | | | | mellitus | | | | | | +---------+ + + +--------+ + + ALLERGIES + + + + +---------+ | Substance | Reaction | Event Type | Date | Status | + + + + +---------+ | N.K.D.A. | Unknown | Non Drug | Jan, | Unknown | | | | Allergy | | | + + + + +---------+ SOCIAL HISTORY No smoking Hx information available PLAN OF CARE + +---------+ | Activity | Details | + +---------+ +---+ | | +---+ + + + | Follow Up | as scheduled with PCP for hyperglycemia | | | and as scheduled with foot clinic next | | | week Reason:null | + + + VITAL SIGNS + + + + | Height | 71 in | 2017-01-14 | + + + + | Weight | 179.5 lbs | 2017-01-14 | + + + + | BMI | 25.03 kg/m2 | 2017-01-14 | + + + + | Temperature | 98.0 degrees Fahrenheit | 2017-01-14 | + + + + | Heart Rate | 110 /min | 2017-01-14 | + + + + | Blood pressure systolic | 137 mm Hg | 2017-01-14 | + + + + | Blood pressure diastolic | 82 mm Hg | 2017-01-14 | + + + + MEDICATIONS + + + + + + [...] tablet | 24h | Nov, | | 90 days | Active | | il 5 MG | Once a | | | [...] One | | as | 24h | Nov, | | | Active | | Touch | | directed | | 2017 | | | | | Test | | | | | | | | | Strips | | | | | | | | | ... | | | | | | | | + + + + + + + +--------+ | Lipitor | Orally | 1 tablet | 24h | Nov, | | 90 days | Active | | 20 mg | Once a | | | 2016 | | | | | | day | | | | | | | + + + + + + + +--------+ | One | | as | | 06 Nov, | | | Active | | Touch | | directed | | 2016 | | | | | Glucomet | | | | | | | | | er - | | | | | | | | + + + + + + + +--------+ | Doxycycl | Orally | 1 tablet | 12h | Jan, | 13 Jan, | 10 | Active | | ine | every 12 | | | 2016 | 2016 | day(s) | | | Monohydr | hrs | | | | | | | | ate 100 | | | | | | | | | mg | | | | | | | | + + + + + + + +--------+ | Antonio 2 | | as | | 01 Tej, | | | Active | | test | | directed | | 2016 | | | | | strips | | | | | | | | + + + + + + + +--------+ | Ibuprofe | Orally | 1 tablet | 8h | Jan, | 13 Aug, | 10 | Active | | n 800 MG | Three | | | 2016 | 2016 | day(s) | | | | times a | | | | | | | | | day | | | | | | | + + + + + + + +--------+ | One | | as | | 06 Tej, | | | Active | | Touch | | directed | | 2016 | | | | | Lancets | | | | | | | | + + + + + + + +--------+ RESULTS No Results PROCEDURES + + + + + | Procedure | Date Ordered | Related Diagnosis | Body Site | + + + + + | Est Level III | Jan 14, 2017 | | | | Intermediate | | | | + + + + + IMMUNIZATIONS No Known Immunizations"
--- OUTSIDE RECORDS SUMMARY | 2017-06-23 17:21 | XMS ---
Demographics + + + | Address | [address] | | | [place] [address] | + + + | Preferred Language | Unknown | + + + | Marital Status | Unknown | + + + | Sikhism Affiliation | Unknown | + + + | Race | Unknown | + + + | Ethnic Group | Unknown | + + + Author + + + | Author | [facility] | + + + | Organization | [facility] | + + + | Address | [address] | | | [place] [address] | + + + | Phone | | + + + Care Team Providers + + + + | Care Structural Engineering Project Manager Name | Role | Phone | + + + + Unavailable | Unavailable | + + + + PROBLEMS +---------+ + + +--------+ + + | Type | Condition | ICD9-CM | [id number] | Onset | Condition | SNOMED | | | | Code | Code | Dates | Status | Code | +---------+ + + +--------+ + + | Problem | Single | I10 | | | Active | [id number] | | | episode of | | | | | | | | | | | | | | | | hypertensi | | | | | | | | on | | | | | | +---------+ + + +--------+ + + | Problem | Dyslipidem | E78.5 | | | Active | 871695194 | | | ia | | | | | | +---------+ + + +--------+ + + | Problem | Diabetes | | E11.9 | | Active | 527665647 | +---------+ + + +--------+ + + | Problem | Marijuana | F12.10 | | | Active | 94617844 | | | use | | | | | | +---------+ + + +--------+ + + | Problem | Type 2 | | E11.9 | | Active | 736670102 | | | diabetes | | | | | | | | mellitus | | | | | | | | without | | | | | | | | complicati | | | | | | | | ons | | | | | | +---------+ + + +--------+ + + | Problem | HTN | | I10 | | Active | 06962264 | | | (hypertens | | | | | | | | ion) | | | | | | +---------+ + + +--------+ + + | Problem | Type 2 | | E11.621 | | Active | 7823756028 | | | diabetes | | | | | 100 | | | mellitus | | | | | | | | with foot | | | | | | | | ulcer | | | | | | +---------+ + + +--------+ + + | Problem | Screening | | Z12.11 | | Active | 137085255 | | | for colon | | | | | | | | cancer | | | | | | +---------+ + + +--------+ + + | Problem | Screening | Z12.5 | | | Active | 415979191 | | | for | | | | | | | | prostate | | | | | | | | cancer | | | | | | +---------+ + + +--------+ + + | Problem | Hypokalemi | | E87.6 | | Active | 20046482 | | | a | | | | | | +---------+ + + +--------+ + + | Problem | Thrombocyt | D47.3 | | | Active | 7634559 | | | osis | | | | | | +---------+ + + +--------+ + + | Problem | Hypomagnes | | E83.42 | | Active | 036942003 | | | emia | | | | | | +---------+ + + +--------+ + + | Problem | Normocytic | D64.9 | | | Active | 956245535 | | | anemia | | | | | | +---------+ + + +--------+ + + | Problem | 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 | | | Active | 184070201 | | | ed type 2 | [...] + + + | Follow Up | 4 Weeks Reason:null | + + + VITAL SIGNS + + + + | Height | 71 in | 2017-02-02 | + + + + | Weight | 180.7 lbs | 2017-02-02 | + + + + | BMI | 25.20 kg/m2 | 2017-02-02 | + + + + | Temperature | 98.4 degrees Fahrenheit | 2017-02-02 | + + + + | Heart Rate | 108 /min | 2017-02-02 | + + + + | Blood pressure systolic | 130 mm Hg | 2017-02-02 | + + + + | Blood pressure diastolic | 76 mm Hg | 2017-02-02 | + + + + MEDICATIONS + [...] + + + + + +--------+ | Ceftriax | Intraven | 50 ml | | | | | Active | | one | ous | | | | | | | | Sodium-D | every 24 | | | | | | | | extrose | hrs | | | | | | | | 2-2.22 | | | | | | | | | GM | | | | | | | [...] | 2016 | | | | | Test | | | | | | | | | Strips | | | | | | | | | ... | | | | | | | | + + + + + + + +--------+ RESULTS + +--------+ + + | Name | Result | Date | Reference Range | + +--------+ + + | Glucose, Finger | | 2017-02-02 | | | Stick (IH) | | | | + +--------+ + + PROCEDURES + + + + + | Procedure | Date Ordered | Related Diagnosis | Body Site | + + + + + | REAGENT STRIP/BLOOD | Feb 02, 2017 | | | | GLUCOSE | | | | + + + + + | Est Level IV | Feb 02, 2017 | | | | Extended | | | | + + + + + | DS[facility] MED/CURRENT | Feb 02, 2017 | | | | MED MERGE | | | | + + + + + | HG A1C LEVEL LT | Feb 02, 2017 | | | | <7.0% | | | | + + + + + IMMUNIZATIONS No Known Immunizations"
[2017-06-23] MEDS ORDERED: LANTUS SOL100 UNIT/1 SUB-Q (17:29)
[2017-06-23] MEDS ORDERED: NOVOLOG FL100 UNIT/1 SUB-Q (17:30)
[2017-06-23] MEDS ORDERED: CATAPRES0.1 MG PO (18:50)
[2017-06-23] MEDS ORDERED: MECLIZINE HCL25 M1 PO (18:50)
[2017-06-23] MEDS ORDERED: COZAAR50 MG PO (18:50)
--- NOTE | 2017-06-25 19:33 | EKG ---
[facility] [address] [facility] [place], [place] [address] Signed Normal sinus rhythm Normal ECG No previous ECGs available Confirmed by SHEILA ALVARADO MD ([id number]) on 06/25/2017 7:33:03 PM Electronically Signed By: SHEILA ALVARADO MD 06/25/17 193 PATIENT NAME: MADHAV DOTY JR Electrocardiogram DATE OF : 64 PHYSICIAN: SHEILA ALVARADO MD REPORT #: [id number] REPORT IS CONFIDENTIAL AND NOT TO BE RELEASED WITHOUT AUTHORIZATION
== END 2017-06-23 19:07 | disposition home or self-care (01) ==
LOC: ED 17:14
DX: R42 Dizziness and giddiness (principal); I10 Essential (primary) hypertension; F06.4 Anxiety disorder due to known physiological condition; E11.9 Type 2 diabetes mellitus without complications; K21.9 Gastro-esophageal reflux disease without esophagitis; E78.5 Hyperlipidemia, unspecified; Z79.84 Long term (current) use of oral hypoglycemic drugs; Z79.899 Other long term (current) drug therapy
CPT/HCPCS: 71046; 80053; 84484; 85025; 93005; 93010; 96361; 96374; 99284; J2405; J7030

== ENCOUNTER 2019-03-22 10:52 | Day surgery (SDC) | payer BC ==
[~2019-03-22] VITALS: Ht 180.3 cm; Wt 86.6 kg
[~2019-03-22 10:52] MED LIST changes: +CATAPRES0.1 MG PO; +COZAAR100 MG PO; +COZAAR50 MG PO; +EYLEA2 MG/0.05; +LANTUS SOL100 UNIT/1 SUB-Q; +LISINOPRIL5 MG PO; +MECLIZINE HCL25 M1 PO; +METOPROLOL SUCC50 MG PO; +NOVOLOG FL100 UNIT/1 SUB-Q; +OMEPRAZOLE40 MG PO; +RANITIDINE HCL150 M1 PO
[2019-03-22] MEDS ORDERED: NOVOLOG100 UNIT/1 SUB-Q (11:22)
--- NOTE | 2019-03-22 12:38 | NUR ---
03/22/19 1238 YURY BOONE PATIENT RESTING COMFORTABLY ON HIS STOMACH FOLLOWING THE PROCEDURE. PATIENT RESPONDS TO HIS NAME AND IS ABLE TO FOLLOW SIMPLE DIRECTIONS. PATIENT HAS NO COMPLAINTS OF PAIN OR NAUSEA. CURRENTLY ON 2L OF NASAL CANNULA WITH O2 SAT AT 100%. CBG WAS COMPLETED POST PROCEDURE AND WAS 124.
--- NOTE | 2019-03-24 15:23 | PATH ---
[facility] [address] [facility] [place], [place] [address] Signed SPECIMEN(S): C COMPREHENSIVE FLOW CYTOMETRY, BM EDTA SPECIMEN(S): A BONE MARROW - CORE SPECIMEN(S): B BONE MARROW - ASPIRATION CLINICAL HISTORY: 58-year-old male with myelodysplastic syndrome, unconfirmed. D64.9 (anemia, unspecified). DIAGNOSIS SUMMARY: A. Peripheral blood - Moderate normocytic normochromic anemia with minimal anisocytosis. B. Bone marrow, aspirate smear, aspirate clot, and core biopsy: - Mildly hypocellular marrow (35%) with mild erythroid hypoplasia and mild megakaryocytic atypia. - See Diagnostic Comment. DIAGNOSTIC COMMENT: In summary, this is a mildly hypocellular marrow (35%) with mild erythroid hypoplasia, and mild megakaryocytic atypia. The histologic findings are subtle and not diagnostic of a myelodysplastic syndrome, although a low-grade myelodysplastic syndrome cannot be completely excluded. Reactive causes for the patient's anemia such as nutritional deficiency, infection, inflammatory disorders, drug/toxin effect, autoimmune, etc. also need to be ruled out clinically. Pending cytogenetics will be reported by addendum. LY:smn:C2NR PERIPHERAL BLOOD: HEMOGRAM ([facility]; 03/22/2019): WBC 5.8 K/uL, RBC 3.24 M/uL, HGB 9.9 g/dL, HCT 29.2%, MCV 89.9 fL, MCH 31 pg, MCHC 34 g/dL, RDW 14.2%, PLT 366 K/uL. MANUAL DIFFERENTIAL COUNT: Segmented neutrophils 52%, lymphocytes 31%, monocytes 7%, eosinophils 9%, basophils 1%. The red blood cells are moderately decreased in number with low hemoglobin and hematocrit, and are normocytic and normochromic with minimal anisocytosis. The white blood cells are normal in number and morphologically unremarkable. No circulating blasts are identified. The platelets are normal in number and morphologically unremarkable. BONE MARROW: ASPIRATE SMEARS: The aspirate smears show cellular particles. The erythroid PATIENT NAME: MADHAV DOTY JR PATHOLOGY DATE OF : 64 REPORT #: [id number] PHYSICIAN: GEORGE PATHOLOGY PCP: KATLYN RAMIREZ MD REPORT IS CONFIDENTIAL AND NOT TO BE RELEASED WITHOUT AUTHORIZATION [facility] [address] [place], [place] [address] Signed precursors show maturation. The myeloid precursors show full maturation. There is no increase in blasts. A few megakaryocytes are morphologically unremarkable. BONE MARROW DIFFERENTIAL COUNT (200 cells): Blasts 1%, myelocytes 14%, metamyelocytes 4%, bands 5%, segmented neutrophils 24%, lymphocytes 9%, monocytes 6%, eosinophils 6%, nucleated RBCs 29%, plasma cells 2%. The myeloid:erythroid ratio is 2.2:1. BONE MARROW CORE BIOPSY/ASPIRATE CLOT CELL BLOCK: The core biopsy (1.9 cm) shows trabecular bone and variably cellular marrow (10-55%) with an average mildly hypocellular marrow (35%) with prominent aspirate artifact. The erythroid precursors show maturation. The myeloid precursors show full maturation. There is no increase in blasts. Scattered megakaryocytes show occasional hypolobated forms and small megakaryocytes. A few scattered small lymphocytes account for less than 5% cellularity. No lymphoid aggregates are identified. A few scattered plasma cells account for less than 5% cellularity. SPECIAL STAINS (with adequate controls): - Iron (aspirate smear): Storage iron and ring sideroblasts not identified. - Iron (aspirate clot): Trace storage iron present; ring sideroblasts not identified. - Reticulin (block A1): Grade 0 fibrosis. IMMUNOHISTOCHEMICAL STAINS (performed on block A1 with adequate controls): - CD34: Stains rare blasts (less than 5%). - CD117: Stains a few mast cells. - Myeloperoxidase: Highlights many maturing granulocytes. - CD71: Stains scattered and clustered early/intermediate erythroid precursors. - Factor VIII: Highlights a few scattered variably-sized megakaryocytes. LY:smn FLOW CYTOMETRY: Bone marrow, aspirate, flow cytometry: - No increase in blasts. - No clonal B cell or aberrant T cell population identified. - See Comment. COMMENT: In summary, there is no increase in blasts, clonal B cell or aberrant T cell population identified in this study. Correlation with morphologic findings is recommended for full evaluation including disorders not fully characterized by flow cytometry such as myelodysplastic PATIENT NAME: MADHAV DOTY JR PATHOLOGY DATE OF : 64 REPORT #: [id number] PHYSICIAN: GEORGE PATHOLOGY PCP: KATLYN RAMIREZ MD REPORT IS CONFIDENTIAL AND NOT TO BE RELEASED WITHOUT AUTHORIZATION [facility] [address] [facility] [place], [place] [address] Signed syndrome and myeloproliferative neoplasm. FLOW CYTOMETRY ANALYSIS: FLOW DIFFERENTIAL (% Total CD45 vs. SSC gating): Myeloid 74%; Lymphoid 17%; Monocyte 4%; Dim CD45/Blast: 0.8%. Cell Count: 4.2 x 10*3/uL. POPULATION ANALYSIS: BLASTS: Analysis of the dim CD45 gate demonstrates 0.5% myeloblasts by CD34/CD117. LYMPHOID CELLS: The lymphocyte gate comprises 17% of total events and includes 83% T-cells with a CD4:CD8 ratio of 1.4:1 and normal jerome T-cell antigen expression. 8% of lymphocytes are polyclonal B-cells with a kappa:lambda ratio of 1.6:1. The remainders are NK-cells. MYELOID CELLS: The myeloid population comprises 74% of the total events. No aberrant or immature immunophenotypic expression is detected. MONOCYTES: The monocyte population comprises 4% of the total events. Monocytes are not increased. No aberrant immunophenotypic expression is detected. PLASMA CELLS: 0.1% plasma cells are detected in the screening gate neg-dimCD45/CD38. Plasma cells are CD45 dim and positive for CD19. ANTIBODIES USED: KAPPA, LAMBDA, CD20, CD10, CD19, CD23, CD38, FMC7, CD16, CD56, CD8, CD5, CD2, CD4, CD7, CD3, CD14, CD33, CD13, HLADR, CD34, CD117, CD15, CD45: TOTAL ANTIBODIES USED: 24. JLR FINAL DIAGNOSIS PERFORMED BY: Shimon Trammell MD, Pathologist Mar 23 2019 1:28PM CYTOGENETICS: Pending, to be reported by addendum. GROSS DESCRIPTION: A. The specimen, received in formalin, labeled "Anthony, bone core," consists of two bone core fragments at 0.4 and 2.1 cm. Submitted in (A1) following decalcification in Immunocal for 1.5 hours. B. The specimen, received in formalin, labeled "Anthony, clot," consists of a 1.8 x 1.4 x 0.1 cm aggregate of blood clot. Entirely submitted in (B1). tn:MZ:harini ADDITIONAL NOTES: This test was developed and its performance characteristics determined by [facility]. It has not been cleared or approved by the US Food and Drug Administration. The FDA does not require this test to go through premarket FDA review. This test is used for clinical PATIENT NAME: MADHAV DOTY JR PATHOLOGY DATE OF : 64 REPORT #: [id number] PHYSICIAN: GEORGE PATHOLOGY PCP: KATLYN RAMIREZ MD REPORT IS CONFIDENTIAL AND NOT TO BE RELEASED WITHOUT AUTHORIZATION [facility] [address] [place] [id number] Signed purposes. It should not be regarded as investigational or for research. This laboratory is certified under the Clinical Laboratory Improvement Amendments (CLIA) as qualified to perform high complexity clinical laboratory testing. Immunohistochemical and/or in situ hybridization studies were performed on this case with the appropriate positive controls that react as expected. This test was developed and its performance characteristics determined by [facility]. It has not been cleared or approved by the U.S. Food and Drug Administration. The FDA has determined that such clearance or approval is not necessary. This test is used for clinical purposes. It should not be regarded as investigational or for research. [facility] is certified under the Clinical Laboratory Improvement Amendments of 1988 (CLIA) as qualified to perform high complexity clinical laboratory testing. In this case, certain antibodies were performed by both immunohistochemistry and flow cytometry analysis because flow cytometry analysis did not fully explain all the light microscopic findings. Immunohistochemistry aided in the analysis. Both methods are deemed medically necessary in this case. PERFORMING LABORATORY: Professional interpretation was performed by [facility], [facility], [address] [place] [address] (Pediatric Radiologist: Timoteo Smith M.D.; CLIA#: [id number]). Professional interpretation was performed by George Farmer, [facility], [address] [place] [address] (Pediatric Radiologist: Timoteo Smith M.D.; CLIA#: [id number]). IMAGES: A: [id number]: [id number] Diagnostician: Shimon Trammell MD Pathologist Electronically Signed 03/24/2019 Copies: PATIENT NAME: MADHAV DOTY JR PATHOLOGY DATE OF : 64 REPORT #: [id number] PHYSICIAN: GEORGE PATHOLOGY PCP: KATLYN RAMIREZ MD REPORT IS CONFIDENTIAL AND NOT TO BE RELEASED WITHOUT AUTHORIZATION [address] [address] Signed ~ PATIENT NAME: MADHAV DOTY JR PATHOLOGY DATE OF : 64 REPORT #: [id number] PHYSICIAN: GEORGE DANIELLE PCP: KATLYN RAMIREZ MD REPORT IS CONFIDENTIAL AND NOT TO BE RELEASED WITHOUT AUTHORIZATION
== END 2019-03-22 13:10 | disposition home or self-care (01) ==
LOC: DS 10:52 → OPS 10:52 → DS 12:00 → OPS 12:00
PROVIDERS: Specialist
PROC: 079T3ZX Drainage of Bone Marrow, Percutaneous Approach, Diagnostic (ICD-10-PCS; 2019-03-22)
PROC: 07DR3ZX Extraction of Iliac Bone Marrow, Percutaneous Approach, Diagnostic (ICD-10-PCS; principal; 2019-03-22 12:00)
DX: D61.9 Aplastic anemia, unspecified (principal); D75.89 Other specified diseases of blood and blood-forming organs; E11.9 Type 2 diabetes mellitus without complications; I10 Essential (primary) hypertension; E78.5 Hyperlipidemia, unspecified; Z79.899 Other long term (current) drug therapy
CPT/HCPCS: 85025; 99152; J2250; J3010; J7120

== ENCOUNTER 2020-08-01 07:23 | Day surgery (SDC) | payer BC ==
[~2020-08-01] VITALS: Ht 180.3 cm; Wt 90.0 kg
--- NOTE | ~2020-08-01 | OR ---
[facility] [address] [place], [place] [address] Draft DATE OF OPERATION: 08/01/2020 SURGEON: Doe Weaver MD PREOPERATIVE DIAGNOSES: 1. Gastroesophageal reflux disease. 2. Anemia. 3. Myelodysplastic syndrome. POSTOPERATIVE DIAGNOSES: 1. Small hiatal hernia (40-37 cm). 2. GE junction at 37 cm. 3. Mild chronic gastritis. PROCEDURES: EGD with CLOtest and biopsies of the antrum. ESTIMATED BLOOD LOSS: None. INDICATIONS: Benjamín is a 60-year-old diabetic gentleman, asked to see me for followup endoscopy. He has used his omeprazole with good results. He has been seeing his brick tester for his myelodysplastic syndrome and anemia. He has been treated for that. There was some concern about the proton pump inhibitor in his kidneys. He also had an upper GI bleed in the past from aspirin. He consequently no longer takes aspirin. I did upper and lower endoscopy for him back in January 2017. He had some gastritis at that time. In the meantime, he did have another upper endoscopy with Dr. Beach. Apparently, that was fine. In the office, I gave him a pamphlet on upper endoscopy. We had reviewed the nature of the test in detail. He understands there is risk including, but not limited to, gas bloating, crampy abdominal pain, bleeding, perforation requiring surgery, and missed diagnosis. He also understands the need for IV conscious sedation. He had expressed understanding and wished to proceed. PROCEDURE NOTE: Ed was taken into our endoscopy suite and placed in the supine semi-recumbent position. The posterior oropharynx was anesthetized with Hurricaine spray. A bite block was utilized for the case. He was given a total of 5 mg of Versed and 100 mcg of fentanyl to cover the case. The adult gastroscope was introduced and advanced under direct visualization of the camera into the third portion of the duodenum without difficulty. PATIENT NAME: BENJAMÍN DOTY JR OPERATIVE REPORT DATE OF : 64 REPORT #: [id number] PHYSICIAN: DOE WEAVER MD PCP: KATLYN RAMIREZ MD REPORT IS CONFIDENTIAL AND NOT TO BE RELEASED WITHOUT AUTHORIZATION [facility] [address] [place], [place] [address] Draft The duodenum and pyloric channel were unremarkable. We had taken pictures throughout for photodocumentation. He had very minimal erythematous changes in his antrum. We went and took a biopsy of the antrum for pathologic review as well as CLOtest. No ulcerations. Upon retroflexion of scope, he has a small hiatal hernia. It measured roughly 40-37 cm. It was little difficult to measure as he started coughing. He has very minimal disruption to his Z-line. There was no Coto's mucosa. There was no distal esophagitis. The middle and upper esophagus were unremarkable. After this, the gas was suctioned out and the gastroscope removed. Benjamín tolerated the procedure quite well. RECOMMENDATIONS: I will see Benjamín back in my office in 7 to 14 days to review his results. Doe Weaver MD ALB/MODL /[id number] cc: MD Doe Mijares MD Malcolm Townsley, MD Copies: IRENE WALLS MD, ANDREW L MD TOWNSLEY, MALCOLM MD ~ PATIENT NAME: BENJAMÍN DOTY OPERATIVE REPORT DATE OF : 64 REPORT #: [id number] PHYSICIAN: DOE WEAVER MD PCP: KATLYN RAMIREZ MD REPORT IS CONFIDENTIAL AND NOT TO BE RELEASED WITHOUT AUTHORIZATION
[~2020-08-01 07:23] MED LIST changes: +ARANESP300 MCG/0. INJ; +NOVOLOG100 UNIT/1 SUB-Q
--- NOTE | 2020-08-01 09:07 | NUR ---
08/01/20 0907 Edie Avery 0856-PATIENT ARRIVED TO PACU ON 2L NC RR EVEN. OPENS EYES TO VERBAL STIMULI VERY DROWSY DENIES PAIN OR NAUSEA. ABDOMEN SOFT IVF INFUSING. 0905-PATIENT SLEEPING AROUSES TO VERBAL STIMULI ENCOURAGED TO TAKE DEEP BREATHES GLUCOSE CHECKED 110 ORIENTED TO PACU.
--- NOTE | 2020-08-02 16:39 | PATH ---
[facility] [address] [place], [place] [address] Signed THIS IS AN ADDENDUM REPORT SPECIMEN(S): A ANTRUM/PYLORUS BIOPSY SPECIMEN SOURCE: A. ANTRUM/PYLORUS BIOPSY CLINICAL HISTORY: EGD with biopsy. Reflux anemia. MICROSCOPIC DESCRIPTION: Histologic sections of all submitted blocks are examined by light microscopy. These findings, together with the gross examination, support the pathologic diagnosis. FINAL PATHOLOGIC DIAGNOSIS: Stomach, antrum, biopsy: - Antral mucosa with mild chronic, active gastritis. - Negative for Helicobacter organisms on HE stain. - Negative for dysplasia or malignancy. - See comment. COMMENT: An H. pylori immunohistochemical stain (with appropriately staining controls) is pending and will be reported in an addendum. NAL:cml:C2NR GROSS DESCRIPTION: The specimen, labeled "ER, antrum biopsy," is received in formalin and consists of one saini soft tissue fragment that measures 0.2 cm in greatest dimension. The specimen is entirely submitted in cassette (A1). JS (under the direct supervision of a pathologist) The Gross Description was prepared using a voice recognition system. The report was reviewed for accuracy; however, sound-alike word errors, addition and/or deletions may occur. If there is any question about this report, please contact Client Services. PERFORMING LABORATORY: The technical component was performed by [facility], [address] [place] [address] (Crap Shooter: Clair Gaytan MD; CLIA# [id number]). Professional interpretation was performed by [facility] [place] PATIENT NAME: MADHAV DOTY JR PATHOLOGY DATE OF : 64 REPORT #: [id number] PHYSICIAN: MARISA DANIELLE PCP: KATLYN RAMIREZ MD REPORT IS CONFIDENTIAL AND NOT TO BE RELEASED WITHOUT AUTHORIZATION [facility] [address] [place] [id number] Signed [place], [address] [address] (CLIA# [id number]). ADDITIONAL NOTES: Immunohistochemical and/or in situ hybridization studies were performed on this case with the appropriate positive controls that react as expected. This test was developed and its performance characteristics determined by [facility]. It has not been cleared or approved by the U.S. Food and Drug Administration. The FDA has determined that such clearance or approval is not necessary. This test is used for clinical purposes. It should not be regarded as investigational or for research. [facility] is certified under the Clinical Laboratory Improvement Amendments of 1988 (CLIA) as qualified to perform high complexity clinical laboratory testing. The technical component was performed by [facility], [address] [place] [address] (Crap Shooter: Clair Gaytan MD; CLIA# [id number]). Professional interpretation was performed by [facility], [address] [place] [id number] (CLIA# [id number]). REASON FOR ADDENDUM: To add results of additional testing. ADDENDUM PATHOLOGIC DIAGNOSIS: An H. pylori immunohistochemical stain (with appropriately staining controls) is negative for Helicobacter organisms. NAL:[facility] Diagnostician: Chhaya Natarajan MD Pathologist Electronically Signed 08/02/2020 Copies: ~ PATIENT NAME: MADHAV DOTY JR PATHOLOGY DATE OF : 64 REPORT #: [id number] PHYSICIAN: MARISA DANIELLE PCP: KATLYN RAMIREZ MD REPORT IS CONFIDENTIAL AND NOT TO BE RELEASED WITHOUT AUTHORIZATION
== END 2020-08-01 09:35 | disposition home or self-care (01) ==
LOC: OPS 07:23 → DS 07:23 → OPS 08:15 → DS 10:30
PROVIDERS: ATTEND Colon & Rectal Surgery
PROC: 0DB68ZX Excision of Stomach, Via Natural or Artificial Opening Endoscopic, Diagnostic (ICD-10-PCS; principal; 2020-08-01 08:15)
DX: K21.9 Gastro-esophageal reflux disease without esophagitis (principal); D46.9 Myelodysplastic syndrome, unspecified; K44.9 Diaphragmatic hernia without obstruction or gangrene; K29.50 Unspecified chronic gastritis without bleeding; E11.9 Type 2 diabetes mellitus without complications; Z79.4 Long term (current) use of insulin
CPT/HCPCS: 86677; G0500; J2250; J3010; J7121

== ENCOUNTER 2022-06-29 16:43 | Emergency (ER) | payer OTHER, BC ==
[~2022-06-29] VITALS: Ht 180.3 cm; Wt 84.8 kg
--- NOTE | 2022-07-01 13:58 | EKG ---
[facility] [address] [facility] [place], [place] [address] Signed Normal sinus rhythm Normal ECG When compared with ECG of 23-JUN-2017 17:49, No significant change was found Confirmed by SHEILA ALVARADO MD ([id number]) on 07/01/2022 1:57:56 PM Electronically Signed By: SHEILA ALVARADO MD 07/01/22 1358 PATIENT NAME: MADHAV DOTY JR Electrocardiogram DATE OF : 64 PHYSICIAN: SHEILA ALVARADO MD REPORT #: [id number] REPORT IS CONFIDENTIAL AND NOT TO BE RELEASED WITHOUT AUTHORIZATION
== END 2022-06-29 18:14 | disposition short-term general hospital (02) ==
LOC: ED 16:43
DX: S41.112A Laceration without foreign body of left upper arm, initial encounter (principal); W22.8XXA Striking against or struck by other objects, initial encounter; E11.9 Type 2 diabetes mellitus without complications; I10 Essential (primary) hypertension; E78.5 Hyperlipidemia, unspecified; K21.9 Gastro-esophageal reflux disease without esophagitis; E11.40 Type 2 diabetes mellitus with diabetic neuropathy, unspecified; Z79.899 Other long term (current) drug therapy; Z79.4 Long term (current) use of insulin
CPT/HCPCS: 36415; 73060; 80053; 83605; 85025; 86850; 86900; 86901; 87502; 96374; 96375; 99284-25; C9803; G0480; J0690; J1170; U0003